=== PATIENT | male | born 1975 | race Caucasian/White ===

== ENCOUNTER 2018-05-30 10:22 | Emergency (ER) ==
[2018-05-30 10:31] VITALS: BP 141/78; TEMP 96.2; BMI 38.5
[2018-05-30] MEDS ORDERED: LIDOCAINE HCL 1% SDV SUBCUT STA (10:37)
--- NOTE | 2018-05-30 10:56 | ED.PDOC ---
General ED Provider: Dr. SHANTAL LOMELI Chief Complaint: Laceration Stated Complaint: laceration right leg by a chain saw today Time Seen by Physician: 10:32 (margarita hooper ) Mode of Arrival: Walk-In Information Source: Patient Exam Limitations: No limitations Nursing and Triage Documentation Reviewed and Agree: Yes Does patient meet sepsis criteria?: No System Inflammatory Response Syndrome: Not Applicable (see photos before after ) Sepsis Protocol: For patient's 13 years and over: Temp is 96.8 and below OR 101 and greater Pulse >90 BPM Resp >20/minute Acutely Altered Mental Status Are patient's symptoms suggestive of a new infection, such as: -Pneumonia -Skin, Soft Tissue -Endocarditis -UTI -Bone, Joint Infection -Implantable Device -Acute Abdominal Infection -Wound Infection -Meningitis -Blood Stream Catheter Infection -Unknown Skin Complaint Exam - Laceration/Lower Ext. Complaint/Exam Location of Injury: Right, Leg Mechanism of Injury: Laceration Onset/Duration: today am Symptoms Are: Still present Initial Severity: Mild Current Severity: Mild Aggravating: None Alleviating: Compression Associated Signs and Symptoms: Denies: Fever, Chills, Erythema, Numbness, Tingling Differential Diagnoses: Laceration Review of Systems - Review Of Systems Constitutional: Reports: No symptoms Eyes: Reports: No symptoms Ears, Nose, Mouth, Throat: Reports: No symptoms Respiratory: Reports: No symptoms Cardiac: Reports: No symptoms GI: Reports: No symptoms : Reports: No symptoms Musculoskeletal: Reports: No symptoms Skin: Reports: Other (laceration right leg see photos) Neurological: Reports: No symptoms Endocrine: Reports: No symptoms Hematologic/Lymphatic: Reports: No symptoms All Other Systems: Reviewed and Negative Past Medical History - Past Medical History Previously Healthy: Yes Endocrine: Reports: None Cardiovascular: Reports: None Respiratory: Reports: None Hematological: Reports: None Gastrointestinal: Reports: None Genitourinary: Reports: None Neuro/Psych: Reports: None Musculoskeletal: Reports: None Cancer: Reports: None - Surgical History General Surgical History: Reports: None - Family History Family History: Reports: None - Social History Smoking Status: Former smoker Hx Substance Use: No Alcohol Screening: Occasionally - Immunizations Tetanus Shot up to Date: No Physical Exam - Physical Exam Appearance: Well-appearing, No pain distress, Well-nourished Eyes: RO[place]IE, EOMI, Conjunctiva clear ENT: Ears normal, Nose normal, Oropharynx normal Respiratory: Airway patent, Breath sounds clear, Breath sounds equal, Respirations nonlabored Cardiovascular: RRR, Pulses normal, No rub, No murmur GI/: Soft, Nontender, No masses, Bowel sounds normal, No Organomegaly Musculoskeletal: Normal strength, ROM intact, No edema, No calf tenderness Skin: Warm, Dry (7am laceration see photos) Neurological: Sensation intact, Motor intact, Reflexes intact, Cranial nerves intact, Alert, Oriented Psychiatric: Affect appropriate, Mood appropriate Procedures - Laceration/Wound Repair No standard instances Wound Description: Linear Wound Length (cm): 7cm Wound Width: 7mm Wound Depth: 3mm Wound Explored: Clean Wound Irrigated: Yes Wound Prep: Saline Anesthesia: Lidocaine Wound Debrided: Minimal Undermining: Minimal Wound Margins: Vermilion border aligned Wound Repaired With: Teto Number of Teto: 21 Critical Care Note - Critical Care Note Total Time (mins): 0 Course - Course Orders, Labs, Meds: Orders Category Date Time Status Lidocaine HCl/Pf [Lidocaine HCl 1% Sdv] MEDS 05/30/18 10:37 Stat 5 ml SUBCUT ONCE STA Medications Discontinued Medications Generic Name Dose Route Start Last Admin Trade Name Freq PRN Reason Stop Dose Admin Lidocaine HCl 5 ml 05/30/18 10:37 Lidocaine Hcl 1% Sdv SUBCUT 05/30/18 10:38 ONCE STA Vital Signs: Temp Pulse Resp BP Pulse Ox 05/30/18 10:22 96.2 F L 78 16 141/78 H 97 Departure - Departure Time of Disposition: 10:57 (see photos) Disposition: HOME SELF-CARE Discharge Problem: Laceration - injury Instructions: Laceration (ED) Condition: Good Pt referred to PMD for follow-up: Yes IPMP verified?: No Additional Instructions: Please call your Family Physician as soon as possible to schedule a follow-up appointment. Allergies/Adverse Reactions: Allergies No Known Allergies Allergy (Unverified 05/30/18 10:32) Home Medications: Ambulatory Orders Aspirin [Aspirin Chewable] 81 mg PO DAILY 05/30/18 Lisinopril 10 mg PO DAILY 05/30/18 Loratadine [Claritin] 10 mg PO DAILY 05/30/18 Meloxicam [Mobic] 7.5 mg PO DAILY 05/30/18
[2018-05-30] MEDS ORDERED: TENIVAC IM ONE ×2 (11:11→11:32)
== END 2018-05-30 12:08 | disposition home or self-care (01) ==
LOC: ED 10:22
DX: S81.811A Laceration without foreign body, right lower leg, initial encounter (principal); W29.3XXA Contact with powered garden and outdoor hand tools and machinery, initial encounter
CPT/HCPCS: 90471; 90714; 99283